=== PATIENT | female | born 1970 | race Caucasian/White ===

== ENCOUNTER 2024-09-17 20:33 | Day surgery (SDC) | payer OTHER ==
[2024-09-17] MEDS ORDERED: morphine SULFATE 4 MG/ML VIAL ONE (21:05)
[2024-09-17] MEDS: SODIUM CHLORIDE 1,000 ML IV STA (21:26)
[2024-09-17] MEDS: morphine CARPU-JECT 4 MG/1 ML DISP.SYRIN IVPUSH ONE (21:26)
[2024-09-17] MEDS ORDERED: ONDANSETRON 4 MG/2 ML VIAL ONE (21:31)
[2024-09-17] MEDS: ONDANSETRON 4 MG/2 ML VIAL IVPB ONE (21:37)
[2024-09-17 21:47] LABS: EPI CELLS 27 /uL (0-25.1); HYALINE CASTS 0 /uL (0-3.1); URINE APPEARANCE CLOUDY; URINE BACTERIA 816 /uL (0-1359); URINE BILIRUBIN NEGATIVE (NEGATIVE); URINE COLOR YELLOW; URINE GLUCOSE (UA) NEGATIVE (NEGATIVE); URINE KETONE NEGATIVE (NEGATIVE); URINE LEUK ESTERASE 3+ (NEGATIVE); URINE NITRITE NEGATIVE (NEGATIVE); URINE PROTEIN TRACE (NEGATIVE); URINE WBC 2980 /uL (0-25.8)
[2024-09-17 21:58] LABS: BASO % 0.6 % (0-2.0); EOS % 1.1 % (0-4.5); HEMATOCRIT 34.1 % (32.4-45.2); HEMOGLOBIN 10.9 GM/dL (10.7-15.3); LYMPH % 37.9 % (8-40); MEAN CELL VOLUME 78.2 fl (80-96); MEAN PLT VOLUME 9.6 fl (7.5-11.1); MONO % 7.8 % (3.8-10.2); NEUT % 52.6 % (42.8-82.8); PLATELET COUNT 281 10^3/uL (134-434); RBC 4.36 M/mm3 (3.60-5.2); RDW 15.9 % (11.6-15.6); WHITE BLOOD COUNT 8.8 K/mm3 (4.0-10.0)
[2024-09-17 22:04] LABS: POTASSIUM 3.7 mmol/L (3.5-5.1)
[2024-09-17 22:08] LABS: ALBUMIN 3.8 g/dl (3.4-5.0); BLOOD UREA NITROGEN 18.6 mg/dL (7-18)
[2024-09-17 22:11] LABS: BILIRUBIN,TOTAL 0.6 mg/dL (0.2-1); TOT PROT 6.8 g/dl (6.4-8.2)
[2024-09-17] MEDS ORDERED: CEFTRIAXONE 1 GM/50 ML BAG ONE (22:30)
[2024-09-17] MEDS ORDERED: KETOROLAC TROMETHAMINE 30 MG/1 ML VIAL ONE (22:30)
[2024-09-17] MEDS: CEFTRIAXONE 1 GM in DEXTROSE 5%-WATER - 100 ML IVPB ONE (22:40)
[2024-09-17] MEDS: KETOROLAC TROMETHAMINE 30 MG/1 ML VIAL IVPB ONE (22:40)
[2024-09-17 23:32] LABS: URINE RBC 819.2 /uL (0-23.9)
[2024-09-18] MEDS ORDERED: TAMSULOSIN HCL 0.4 MG CAP ONE (00:47)
[2024-09-18] MEDS: TAMSULOSIN HCL 0.4 MG CAP PO ONE (00:53)
[2024-09-18] MEDS ORDERED: ACETAMINOPHEN 1000 MG/100 ML BAG IVPB PRN (01:21)
[2024-09-18] MEDS ORDERED: MORPHINE SULFATE 2 MG/ML SYRINGE IVPUSH PRN (02:00)
[2024-09-18] MEDS: LACTATED RINGERS SOLUTION 1,000 ML/1,000 ML INFUS.BAG IV SCH (02:54)
[2024-09-18 03:49] VITALS: BMI 38.9
[2024-09-18] MEDS ORDERED: IBUPROFEN 600 MG TABLET (FP) PO PRN (05:00)
[2024-09-18] MEDS: LEVOTHYROXINE NA 25 MCG TABLET (FP) PO SCH (06:15)
[2024-09-18] MEDS: VALSARTAN 80 MG TABLET PO SCH (09:12)
[2024-09-18] MEDS: PANTOPRAZOLE 40 MG TABLET PO SCH (09:12)
[2024-09-18] MEDS: CEFTRIAXONE 1 G/50 ML PREMIX 50 ML IVPB SCH (09:12)
[2024-09-18] MEDS: PARoxetine HCL 10 MG TABLET PO SCH (11:23)
[2024-09-18] MEDS: TAMSULOSIN HCL 0.4 MG CAP PO SCH (21:24)
[2024-09-18] MEDS ORDERED: TAMSULOSIN HCL 0.4 MG CAP PO SCH (22:00)
[2024-09-19 10:27] LABS: INR 1.06 (0.83-1.09)
[2024-09-19 10:29] LABS: BASO % 0.5 % (0-2.0); EOS % 1.3 % (0-4.5); HEMATOCRIT 32.8 % (32.4-45.2); LYMPH % 37.2 % (8-40); MCH 25.6 pg (25.7-33.7); MCHC 33.5 g/dl (32.0-36.0); MEAN CELL VOLUME 76.3 fl (80-96); MEAN PLT VOLUME 9.4 fl (7.5-11.1); MONO % 9.7 % (3.8-10.2); NEUT % 51.3 % (42.8-82.8); PLATELET COUNT 231 10^3/uL (134-434); RDW 16.7 % (11.6-15.6); WHITE BLOOD COUNT 5.1 K/mm3 (4.0-10.0)
[2024-09-19 10:51] LABS: POTASSIUM 4.2 mmol/L (3.5-5.1)
[2024-09-19 10:54] LABS: CALCIUM 8.9 mg/dL (8.5-10.1)
[2024-09-19 10:55] LABS: ALBUMIN 3.3 g/dl (3.4-5.0); BLOOD UREA NITROGEN 9.9 mg/dL (7-18); MAGNESIUM 2.1 mg/dL (1.8-2.4)
[2024-09-19 10:58] LABS: CREATININE 0.8 mg/dL (0.55-1.3); PHOSPHOROUS 3.5 mg/dL (2.5-4.9)
[2024-09-19 10:59] LABS: TOT PROT 6.1 g/dl (6.4-8.2)
[2024-09-19] MEDS ORDERED: LIDOCAINE HCL/PF 2% SDV 5ML VIAL ONE (12:55)
[2024-09-19] MEDS ORDERED: DEXAMETHASONE SOD PHOSPHATE 4 MG/1 ML VIAL ONE (12:55)
[2024-09-19] MEDS ORDERED: KETOROLAC TROMETHAMINE 30 MG/1 ML VIAL ONE (12:55)
[2024-09-19] MEDS ORDERED: ONDANSETRON 4 MG/2 ML VIAL ONE (12:55)
[2024-09-19] MEDS ORDERED: ACETAMINOPHEN INJECTION 100 ML ONE (12:57)
[2024-09-19] MEDS ORDERED: MIDAZOLAM HCL 2 MG/2 ML SINGLE DOSE VIAL ONE (13:00)
[2024-09-19] MEDS ORDERED: PROPOFOL 20 ML ONE ×2 (13:01→13:18)
[2024-09-19] MEDS ORDERED: ONDANSETRON 4 MG/2 ML VIAL IVPUSH PRN ×2 (13:07→13:54)
[2024-09-19] MEDS ORDERED: LACTATED RINGERS SOLUTION 1,000 ML IV SCH ×2 (13:15→13:54)
[2024-09-19] MEDS ORDERED: IBUPROFEN 600 MG TABLET (FP) PO PRN (13:54)
[2024-09-19] MEDS ORDERED: LACTATED RINGERS SOLUTION 1,000 ML/1,000 ML INFUS.BAG IV SCH (13:54)
[2024-09-19 14:20] VITALS: TEMP 97.5
[2024-09-19 14:48] VITALS: RESP 12
[2024-09-19 14:49] VITALS: BP 107/58; PULSE 64
[2024-09-19] MEDS ORDERED: TAMSULOSIN HCL 0.4 MG CAP PO SCH (22:00)
[2024-09-20] MEDS ORDERED: LEVOTHYROXINE NA 25 MCG TABLET (FP) PO SCH (07:00)
[2024-09-20] MEDS ORDERED: VALSARTAN 80 MG TABLET PO SCH (10:00)
[2024-09-20] MEDS ORDERED: PARoxetine HCL 10 MG TABLET PO SCH (10:00)
[2024-09-20] MEDS ORDERED: CEFTRIAXONE 1 G/50 ML PREMIX 50 ML IVPB SCH (10:00)
[2024-09-20] MEDS ORDERED: PANTOPRAZOLE 40 MG TABLET PO SCH (10:00)
[2024-09-26 19:10] LABS: CA OXALATE MONOHYDR. 90 % (.); SIZE 5x4 mm (.); WEIGHT 43 mg (.)
== END 2024-09-19 17:34 | disposition home or self-care (01) ==
LOC: JER 20:33 → JERBED 09-18 00:27 → INTOOBSV 09-18 00:27 → UNDOADMOB 09-18 00:27 → J6S 09-18 01:57 → JERBED 09-18 01:57 → JASUSAT 09-19 14:33 → J6S 09-19 14:41 → JASUSAT 09-19 17:34
PROVIDERS: ATTEND Internal Medicine
PROC: 0TCB8ZZ Extirpation of Matter from Bladder, Via Natural or Artificial Opening Endoscopic (ICD-10-PCS; principal; 2024-09-19 12:30)
DX: N21.0 Calculus in bladder (principal)
CPT/HCPCS: 36415; 74176-TC; 76000-TC-FY; 80053; 81003; 82360; 83735; 84100; 85025; 85610; 86850; 86900; 86901; 87086; 88300-TC; 93005; 93010; 94760; 99285-25; C1758; C1769; J0131